=== PATIENT | female | born 1965 | race African-American/Black ===

== ENCOUNTER 2020-10-26 01:24 | Emergency (ER) | payer OTHER ==
[~2020-10-26] VITALS: Ht 154.9 cm; Wt 94.8 kg
[2020-10-26 02:26] VITALS: BP 153/85
== END 2020-10-26 03:07 | disposition left against medical advice (07) ==
LOC: ER 01:24
DX: R05 Cough (principal); J45.909 Unspecified asthma, uncomplicated; Z20.828 Contact with and (suspected) exposure to other viral communicable diseases